=== PATIENT | female | born 1940 | race Caucasian/White ===

== ENCOUNTER 2019-09-22 07:27 | Day surgery (SDC) | payer MEDICARE, BC ==
--- NOTE | 2019-09-22 07:12 | PCM.PREANE ---
Preanesthetic Assessment - Anesthesia/Transfusion/Family Hx Anesthesia History: Prior Anesthesia Without Reaction Family History of Anesthesia Reaction: No Transfusion History: No Prior Transfusion(s) Intubation History: Unknown - Review of Systems General: No Symptoms Pulmonary: No Symptoms Cardiovascular: No Symptoms (HTN, elevated cholesterol), Palpitations, Edema Gastrointestinal: No Symptoms Neurological: No Symptoms (vertigo), Headache (migraines) Other: Reports: Sinus Problem (seasonal allergies) - Physical Assessment NPO Status Date: 09/21/19 NPO Status Time: 18:00 Vital Signs: HR:88 B/P:158/86 Sat:94% Temp:96.3 Resp:16 Height: 1.52 m Weight: 77.111 kg ASA Class: 2 Mental Status: Alert & Oriented x3 Airway Class: Mallampati = 2 Dentition: Reports: Normal Dentition, Partial (lower), Implants (upper each side) Thyro-Mental Finger Breadths: 3 Mouth Opening Finger Breadths: 3 ROM/Head Extension: Full Lungs: Clear to Auscultation, Normal Respiratory Effort Cardiovascular: Regular Rate, Regular Rhythm, No Murmurs - Allergies Allergies/Adverse Reactions: Allergies Allergy/AdvReac Type Severity Reaction Status Date / Time doxycycline AdvReac Cough Verified 09/21/19 16:07 - Anesthesia Plan Beta Radha: Other (Coreg) Med Last Dose Date: 09/22/19 Med Last Dose Time: 06:30 - Acknowledgements Anesthesia Type Planned: MAC Pt an Appropriate Candidate for the Planned Anesthesia: Yes Alternatives and Risks of Anesthesia Discussed w Pt/Guardian: Yes Pt/Guardian Understands and Agrees with Anesthesia Plan: Yes PreAnesthesia Questionnaire Cardiovascular History: Reports: Hypertension Neurological History: Reports: Vertigo - Past Surgical History GI Surgical History: Reports: Appendectomy, Hernia Repair/Other Female Surgical History: Reports: Hysterectomy, Other (See Below) Neurological Surgical History: Reports: Lumbar Spine - HOME MEDS Home Medications: Home Meds Aspirin 81 mg PO DAILY 09/21/19 [History] Carboxymethylcellulose Sodium [Artificial Tears] 1 dose EYEBOTH ASDIRECTED PRN 09/21/19 [History] Cetirizine HCl [Zyrtec] 10 mg PO DAILY 09/21/19 [History] Cholecalciferol (Vitamin D3) [Vitamin D3] 1,000 unit PO DAILY 09/21/19 [History] Gabapentin [Neurontin] 300 mg PO QID 09/21/19 [History] Irbesartan 300 mg PO QID 09/21/19 [History] Meclizine [Antivert] 25 mg PO DAILY 09/21/19 [History] Potassium Chloride 10 mg PO DAILY 09/21/19 [History] Pregabalin [Lyrica] 150 mg PO DAILY 09/21/19 [History] SUMAtriptan [Imitrex] 50 mg PO ASDIRECTED PRN 09/21/19 [History] Zolpidem [Ambien] 10 mg PO BEDTIME PRN 09/21/19 [History] amLODIPine Besylate [Amlodipine Besylate] 10 mg PO DAILY 09/21/19 [History] carvediloL [Carvedilol] 6.25 mg PO BID 09/21/19 [History] hydroCHLOROthiazide [Hydrochlorothiazide] 25 mg PO DAILY 09/21/19 [History] traMADol HCl [Tramadol HCl] 50 mg PO Q6H PRN 09/21/19 [History] - CURRENT (IN HOUSE) MEDS Current Meds: Current Medications Brimonidine Tartrate (Alphagan 0.2% Ophth Soln) 0 ml EYERT ASDIRECTED ANITA Stop: 09/22/19 18:00 Cefuroxime Sodium (Zinacef) 0 mg EYERT ASDIRECTED ANITA Stop: 09/22/19 18:00 Lidocaine HCl (Xylocaine-Mpf 1%) 0 ml INJECT ASDIRECTED ANITA Stop: 09/22/19 18:00 Phenylephrine HCl (Matt-Synephrine 2.5% Ophth Soln) 0 ml EYERT ASDIRECTED ANITA Stop: 09/22/19 18:00 Pilocarpine HCl (Pilocar 4% Ophth Soln) 0 ml EYERT ASDIRECTED ANITA Stop: 09/22/19 18:00 Polymyxin/Trimethoprim Sulfate (Polytrim Ophth Soln) 0 ml EYERT ASDIRECTED ANITA Stop: 09/22/19 18:00 Tetracaine HCl (Tetracaine 0.5% Steri-Unit Lizabeth) 0 ml EYEBOTH ASDIRECTED ANITA Stop: 09/22/19 18:00 Tropicamide (Mydriacyl 1% Ophth Soln) 0 ml EYERT ASDIRECTED ANITA Stop: 09/22/19 18:00
[2019-09-22] MEDS: Polymyxin B/Trimethoprim 10 ML Bottle EYERT SCH ×4 (07:57→09:44)
[2019-09-22] MEDS: Brimonidine 0.2% Ophth Soln 5 ML Bottle EYERT SCH ×4 (08:03→09:44)
[2019-09-22] MEDS: Phenylephrine 2.5% Ophth Soln 2 ML Bot EYERT SCH ×5 (08:07→09:20)
[2019-09-22] MEDS: Tropicamide 1% Ophth Soln 15 ML Bottle EYERT SCH ×4 (08:13→08:53)
[2019-09-22] MEDS: Tetracaine HCl/PF 0.5% 4 ML Bottle EYEBOTH SCH ×2 (09:20→09:28)
[2019-09-22] MEDS: Lidocaine 1% PF 2 ML SDV INJECT SCH ×2 (09:26→09:28)
[2019-09-22] MEDS: Cefuroxime 10 MG/ML SYRINGE EYERT SCH ×2 (09:28→09:43)
[2019-09-22] MEDS: Pilocarpine 4% Ophth Soln 15 ML Bot EYERT SCH ×2 (09:29→09:44)
--- NOTE | 2019-09-22 09:46 | PCM48HPAN ---
Post Anesthesia Note - EVALUATION WITHIN 48HRS OF ANESTHETIC Vital Signs in Normal Range: Yes Patient Participated in Evaluation: Yes Respiratory Function Stable: Yes Airway Patent: Yes Cardiovascular Function Stable: Yes Hydration Status Stable: Yes Pain Control Satisfactory: Yes Nausea and Vomiting Control Satisfactory: Yes Mental Status Recovered: Yes Vital Signs: Last Vital Signs Temp 35.7 C L 09/22/19 07:25 Pulse 88 09/22/19 07:25 Resp 16 09/22/19 07:25 BP 158/86 H 09/22/19 07:25 Pulse Ox 94 L 09/22/19 07:25
[2019-09-22 10:11] VITALS: BP 151/74; PULSE 82
== END 2019-09-22 09:57 | disposition home or self-care (01) ==
LOC: JD.SDS 07:27
PROVIDERS: ATTEND Ophthalmology
DX: H25.813 Combined forms of age-related cataract, bilateral (principal); H16.103 Unspecified superficial keratitis, bilateral; H16.223 Keratoconjunctivitis sicca, not specified as Sjogren's, bilateral; H02.831 Dermatochalasis of right upper eyelid; H02.834 Dermatochalasis of left upper eyelid; H57.813 Brow ptosis, bilateral; E78.00 Pure hypercholesterolemia, unspecified; G47.00 Insomnia, unspecified; G43.909 Migraine, unspecified, not intractable, without status migrainosus; I10 Essential (primary) hypertension; Z79.82 Long term (current) use of aspirin; Z79.899 Other long term (current) drug therapy; Z88.1 Allergy status to other antibiotic agents
CPT/HCPCS: 66984; J0697; J2001; C1780

== ENCOUNTER 2019-10-18 10:25 | Day surgery (SDC) | payer MEDICARE, BC ==
[2019-10-18] MEDS: Polymyxin B/Trimethoprim 10 ML Bottle EYELF SCH ×4 (10:32→12:28)
[2019-10-18] MEDS: Brimonidine 0.2% Ophth Soln 5 ML Bottle EYELF SCH ×4 (10:38→12:28)
[2019-10-18] MEDS: Phenylephrine 2.5% Ophth Soln 2 ML Bot EYELF SCH ×6 (10:46→12:07)
[2019-10-18] MEDS: Tropicamide 1% Ophth Soln 15 ML Bottle EYELF SCH ×4 (10:49→11:18)
--- NOTE | 2019-10-18 10:56 | PCM.PREANE ---
<Daphne Hernandez - Last Filed: 10/18/19 10:51> Preanesthetic Assessment - Anesthesia/Transfusion/Family Hx Anesthesia History: Prior Anesthesia Without Reaction Transfusion History: No Prior Transfusion(s) Intubation History: Unknown - Review of Systems General: No Symptoms Pulmonary: No Symptoms Cardiovascular: No Symptoms, Palpitations, Edema, Other (HTN, elevated cholesterol) Gastrointestinal: No Symptoms Neurological: No Symptoms Other: Reports: None - Physical Assessment NPO Status Date: 10/17/19 NPO Status Time: 21:00 Height: 1.52 m Weight: 77.111 kg ASA Class: 2 Mental Status: Alert & Oriented x3 Airway Class: Mallampati = 2 Dentition: Reports: Normal Dentition, Partial (lower), Implants (upper ) Thyro-Mental Finger Breadths: 3 Mouth Opening Finger Breadths: 3 ROM/Head Extension: Full Lungs: Clear to Auscultation, Normal Respiratory Effort Cardiovascular: Regular Rate, Regular Rhythm - Allergies Allergies/Adverse Reactions: Allergies Allergy/AdvReac Type Severity Reaction Status Date / Time doxycycline AdvReac Cough Verified 10/17/19 13:52 - Acknowledgements Anesthesia Type Planned: MAC Pt an Appropriate Candidate for the Planned Anesthesia: Yes Alternatives and Risks of Anesthesia Discussed w Pt/Guardian: Yes Pt/Guardian Understands and Agrees with Anesthesia Plan: Yes PreAnesthesia Questionnaire Cardiovascular History: Reports: Hypertension Neurological History: Reports: Vertigo - Past Surgical History GI Surgical History: Reports: Appendectomy, Hernia Repair/Other Female Surgical History: Reports: Hysterectomy, Other (See Below) Neurological Surgical History: Reports: Lumbar Spine - HOME MEDS Home Medications: Home Meds Aspirin 81 mg PO DAILY 09/21/19 [History] Carboxymethylcellulose Sodium [Artificial Tears] 1 dose EYEBOTH ASDIRECTED PRN 09/21/19 [History] Cetirizine HCl [Zyrtec] 10 mg PO DAILY 09/21/19 [History] Cholecalciferol (Vitamin D3) [Vitamin D3] 1,000 unit PO DAILY 09/21/19 [History] Gabapentin [Neurontin] 300 mg PO QID 09/21/19 [History] Irbesartan 300 mg PO QID 09/21/19 [History] Meclizine [Antivert] 25 mg PO DAILY 09/21/19 [History] Potassium Chloride 10 mg PO DAILY 09/21/19 [History] Pregabalin [Lyrica] 150 mg PO DAILY 09/21/19 [History] SUMAtriptan [Imitrex] 50 mg PO ASDIRECTED PRN 09/21/19 [History] Zolpidem [Ambien] 10 mg PO BEDTIME PRN 09/21/19 [History] amLODIPine Besylate [Amlodipine Besylate] 10 mg PO DAILY 09/21/19 [History] carvediloL [Carvedilol] 6.25 mg PO BID 09/21/19 [History] hydroCHLOROthiazide [Hydrochlorothiazide] 25 mg PO DAILY 09/21/19 [History] traMADol HCl [Tramadol HCl] 50 mg PO Q6H PRN 09/21/19 [History] <Jam Lawson - Last Filed: 10/18/19 11:09> Preanesthetic Assessment - Physical Assessment Vital Signs: Last Vital Signs Temp 97.8 F 10/18/19 10:25 Pulse 73 10/18/19 10:25 Resp 16 10/18/19 10:25 BP 160/76 H 10/18/19 10:25 Pulse Ox 93 L 10/18/19 10:25 PreAnesthesia Questionnaire - CURRENT (IN HOUSE) MEDS Current Meds: Current Medications Brimonidine Tartrate (Alphagan 0.2% Ophth Soln) 0 ml EYELF ASDIRECTED ANITA Stop: 10/18/19 23:00 Last Admin: 10/18/19 10:38 Dose: 1 drop Documented by: Cefuroxime Sodium (Zinacef) 0 mg EYELF ASDIRECTED ANITA Stop: 10/18/19 18:00 Lidocaine HCl (Xylocaine-Mpf 1%) 0 ml INJECT ASDIRECTED ANITA Stop: 10/18/19 18:00 Phenylephrine HCl (Matt-Synephrine 2.5% Ophth Soln) 0 ml EYELF ASDIRECTED ANITA Stop: 10/18/19 23:00 Last Admin: 10/18/19 10:59 Dose: 1 drop Documented by: Pilocarpine HCl (Pilocar 4% Ophth Soln) 0 ml EYELF ASDIRECTED ANITA Stop: 10/18/19 18:00 Polymyxin/Trimethoprim Sulfate (Polytrim Ophth Soln) 0 ml EYELF ASDIRECTED ANITA Stop: 10/18/19 18:00 Last Admin: 08/18/20 11:07 Dose: 1 drop Documented by: Tetracaine HCl (Tetracaine 0.5% Steri-Unit Lizabeth) 0 ml EYEBOTH ASDIRECTED ANITA Stop: 10/18/19 18:00 Tropicamide (Mydriacyl 1% Ophth Soln) 0 ml EYELF ASDIRECTED ANITA Stop: 10/18/19 18:00 Last Admin: 10/18/19 11:03 Dose: 1 drop Documented by:
[2019-10-18] MEDS: Tetracaine HCl/PF 0.5% 4 ML Bottle EYEBOTH SCH ×8 (11:26→12:15)
[2019-10-18] MEDS: Cefuroxime 10 MG/ML SYRINGE EYELF SCH ×2 (11:59→12:27)
[2019-10-18] MEDS: Lidocaine 1% PF 2 ML SDV INJECT SCH ×2 (11:59→12:16)
[2019-10-18] MEDS: Pilocarpine 4% Ophth Soln 15 ML Bot EYELF SCH ×2 (12:00→12:28)
--- NOTE | 2019-10-18 12:32 | PCM48HPAN ---
Post Anesthesia Note - EVALUATION WITHIN 48HRS OF ANESTHETIC Vital Signs in Normal Range: Yes Patient Participated in Evaluation: Yes Respiratory Function Stable: Yes Airway Patent: Yes Cardiovascular Function Stable: Yes Hydration Status Stable: Yes Pain Control Satisfactory: Yes Nausea and Vomiting Control Satisfactory: Yes Mental Status Recovered: Yes Vital Signs: Last Vital Signs Temp 97.8 F 10/18/19 10:25 Pulse 73 10/18/19 10:25 Resp 16 10/18/19 10:25 BP 160/76 H 10/18/19 10:25 Pulse Ox 93 L 10/18/19 10:25 142/71, HR 78, RR 12, SpO2 93% RA
[2019-10-18 12:48] VITALS: BP 154/85; PULSE 81
== END 2019-10-18 12:43 | disposition home or self-care (01) ==
LOC: JD.SDS 10:25
PROVIDERS: ATTEND Ophthalmology
DX: H25.812 Combined forms of age-related cataract, left eye (principal); H02.831 Dermatochalasis of right upper eyelid; H02.834 Dermatochalasis of left upper eyelid; H57.813 Brow ptosis, bilateral; H16.103 Unspecified superficial keratitis, bilateral; H16.223 Keratoconjunctivitis sicca, not specified as Sjogren's, bilateral; E78.00 Pure hypercholesterolemia, unspecified; I10 Essential (primary) hypertension; G47.00 Insomnia, unspecified; Z79.82 Long term (current) use of aspirin; Z79.899 Other long term (current) drug therapy; Z96.1 Presence of intraocular lens
CPT/HCPCS: 66984; J0697; J2001; C1780

== ENCOUNTER 2022-12-21 03:15 | Inpatient (IN) | payer MEDICARE, BC ==
[2022-12-21] MEDS ORDERED: Sodium Chloride 0.9% 10 ML Syringe FLUSH PRN (03:42)
[2022-12-21] MEDS ORDERED: Lactated Ringers 1,000 ML IV ONE (03:46)
[2022-12-21 03:58] LABS: APPEARANCE,URINE CLEAR (Clear); BILIRUBIN,URINE NEGATIVE (Negative); COLOR,URINE LIGHT YELLOW (Yellow); GLUCOSE,URINE NEGATIVE (Negative); KETONES,URINE TRACE (Negative); LEUKOCYTE ESTERASE,URINE TRACE (Negative); NITRITE,URINE NEGATIVE (Negative); OCCULT BLOOD,URINE TRACE-LYSED (Negative); PROTEIN,URINE 2+ (Negative); UROBILINOGEN,URINE 0.2 (0.2-1.0)
[2022-12-21] MEDS ORDERED: Ondansetron 4 MG/2 ML SDV IVPUSH ONE ×3 (03:58→15:19)
[2022-12-21 04:00] LABS: BASOPHILS ABSOLUTE AUTO 0.1 K/mm3 (0.0-0.2); BASOPHILS PERCENT AUTO 0.8 % (0.0-1.0); EOSINOPHILS ABSOLUTE AUTO 0.2 K/mm3 (0.0-0.4); EOSINOPHILS PERCENT AUTO 2.5 % (0.0-6.0); HEMATOCRIT 43.8 % (37.0-47.0); HEMOGLOBIN 14.9 gm/dl (12.0-16.0); IMMATURE GRAN ABSOLUTE AUTO 0.03 K/mm3 (0.00-0.05); IMMATURE GRAN PERCENT AUTO 0.4 % (0.0-0.4); LYMPHOCYTES ABSOLUTE AUTO 1.2 K/mm3 (1.0-4.8); LYMPHOCYTES PERCENT AUTO 15.5 % (24.0-44.0); MEAN CORPUSCULAR HEMOGLOBIN 28.7 pg (28.0-32.0); MEAN CORPUSCULAR VOLUME 84.4 fl (83.0-99.0); MEAN PLATELET VOLUME 11.2 fl (9.4-12.3); MONOCYTES ABSOLUTE AUTO 0.5 K/mm3 (0.0-0.8); NEUTROPHILS PERCENT AUTO 74.8 % (41.0-71.0); PLATELET COUNT,PLT 238 K/mm3 (150-400); RED BLOOD CELL COUNT 5.19 M/mm3 (4.10-5.30)
[2022-12-21 04:05] LABS: BACTERIA,URINE MANY /hpf (FEW); RBC,URINE 0-5 /hpf (0-5); SQUAMOUS EPITHELIAL CELLS,UR 0-5 /hpf (0-5); WBC,URINE 20-30 /hpf (0-5)
[2022-12-21 04:06] LABS: MUCUS,URINE NOT SEEN /hpf (FEW)
[2022-12-21 04:19] LABS: A/G RATIO 1.4 (1-2); ALBUMIN 4.8 g/dl (3.4-5.0); ANION GAP 17.6 (5-15); BILIRUBIN TOTAL 0.5 mg/dL (0.2-1.0); CALCIUM 9.6 mg/dL (8.5-10.1); CREATININE 0.8 mg/dL (0.55-1.02); EST CRCL DRUG DOSING (CG) 45.2 mL/min; MAGNESIUM 1.7 mg/dL (1.8-2.4); POTASSIUM,K 2.6 mEq/L (3.5-5.1); PROTEIN TOTAL,TP 8.2 g/dl (6.4-8.2)
[2022-12-21] MEDS ORDERED: NS with KCl 40mEq 1,000 ML IV SCH (04:30)
[2022-12-21] MEDS ORDERED: Prochlorperazine 10 MG/2 ML SDV IVPUSH ONE (04:30)
[2022-12-21] MEDS ORDERED: cefTRIAXone 1 GM in Sodium Chloride 0.9% 100 ML IV ONE (04:33)
[2022-12-21] MEDS ORDERED: Prochlorperazine 5 MG in Sodium Chloride 0.9% 50 ML IV ONE (08:19)
[2022-12-21] MEDS ORDERED: Potassium Chloride 20 MEQ Tab.ER PO ONE (09:22)
[2022-12-21] MEDS ORDERED: traMADol 50 MG Tab PO ONE (13:34)
[2022-12-21] MEDS ORDERED: cefTRIAXone 1 GM in Sodium Chloride 0.9% 100 ML IV SCH (15:30)
[2022-12-21] MEDS: oxyCODONE 5 MG Tab PO PRN ×2 (16:51→23:13)
[2022-12-21] MEDS: Acetaminophen 325 MG Tab PO PRN (16:51)
[2022-12-21] MEDS: Heparin Sodium 5,000 Units/ML Vial SUBCUT SCH (17:31)
[2022-12-21] MEDS: Ondansetron 4 MG Tab.DIS PO PRN ×2 (17:32→21:20)
[2022-12-21] MEDS ORDERED: amLODIPine 10 MG Tab PO ONE (20:00)
[2022-12-22] MEDS: Heparin Sodium 5,000 Units/ML Vial SUBCUT SCH ×3 (00:04→16:24)
[2022-12-22] MEDS: Acetaminophen 325 MG Tab PO PRN (03:46)
[2022-12-22] MEDS: oxyCODONE 5 MG Tab PO PRN (03:47)
[2022-12-22] MEDS ORDERED: cefTRIAXone 1 GM in Sodium Chloride 0.9% 100 ML IV SCH (04:00)
[2022-12-22 05:30] LABS: BASOPHILS PERCENT AUTO 0.1 % (0.0-1.0); HEMATOCRIT 44.3 % (37.0-47.0); IMMATURE GRAN ABSOLUTE AUTO 0.11 K/mm3 (0.00-0.05); IMMATURE GRAN PERCENT AUTO 0.7 % (0.0-0.4); LYMPHOCYTES ABSOLUTE AUTO 1.1 K/mm3 (1.0-4.8); LYMPHOCYTES PERCENT AUTO 6.7 % (24.0-44.0); MEAN CORPUSCULAR HEMOGLOBIN 28.7 pg (28.0-32.0); MEAN CORPUSCULAR HGB CONC 33.9 g/dl (32.0-36.0); MEAN CORPUSCULAR VOLUME 84.9 fl (83.0-99.0); MEAN PLATELET VOLUME 11.8 fl (9.4-12.3); MONOCYTES ABSOLUTE AUTO 0.7 K/mm3 (0.0-0.8); NEUTROPHILS ABSOLUTE AUTO 14.9 K/mm3 (1.8-7.7); NEUTROPHILS PERCENT AUTO 88.5 % (41.0-71.0); PLATELET COUNT,PLT 302 K/mm3 (150-400); RED BLOOD CELL COUNT 5.22 M/mm3 (4.10-5.30); WHITE BLOOD CELL COUNT,WBC 16.83 K/mm3 (3.9-11.3)
[2022-12-22 06:09] LABS: A/G RATIO 1.3 (1-2); ALBUMIN 4.7 g/dl (3.4-5.0); ANION GAP 19.1 (5-15); BILIRUBIN TOTAL 0.6 mg/dL (0.2-1.0); BUN/CREATININE RATIO 16.7 (14-18); CALCIUM 9.7 mg/dL (8.5-10.1); CREATININE 0.9 mg/dL (0.55-1.02); EST CRCL DRUG DOSING (CG) 38.49 mL/min; MAGNESIUM 1.7 mg/dL (1.8-2.4); POTASSIUM,K 3.1 mEq/L (3.5-5.1); PROTEIN TOTAL,TP 8.3 g/dl (6.4-8.2)
[2022-12-22] MEDS ORDERED: Metoclopramide 10 MG/2 ML SDV IVPUSH ONE (07:58)
[2022-12-22] MEDS: Ondansetron 4 MG Tab.DIS PO PRN (07:58)
[2022-12-22] MEDS: amLODIPine 10 MG Tab PO SCH (08:09)
[2022-12-22] MEDS ORDERED: Carboxymethylcellulose Sodium 1% Ophth Gel 15 ML Bottle EYEBOTH PRN (08:44)
[2022-12-22] MEDS: Gabapentin 300 MG Cap PO SCH ×3 (09:09→22:00)
[2022-12-22] MEDS: Pregabalin 75 MG Cap PO SCH ×2 (09:10→21:59)
[2022-12-22] MEDS: Cetirizine 10 MG Tab PO SCH (09:10)
[2022-12-22] MEDS: Potassium Chloride 20 MEQ Tab.ER PO SCH ×2 (09:10→21:59)
[2022-12-22] MEDS: Meclizine 25 MG Tab PO SCH ×2 (09:10→22:00)
[2022-12-22] MEDS: Carvedilol 6.25 MG Tab PO SCH ×2 (09:12→21:59)
[2022-12-22] MEDS: Losartan 100 MG Tab PO SCH (09:13)
[2022-12-22] MEDS ORDERED: Magnesium Sulfate/Water 2 GM in Premix Bag 1 BAG IV ONE (10:00)
[2022-12-22 10:47] LABS: CORONAVIRUS COVID-19 NAA NEGATIVE (NEGATIVE); INFLUENZA A NAA NEGATIVE (NEGATIVE); RESPIRATORY SYNCYTIAL VIR NAA NEGATIVE (NEGATIVE)
[2022-12-22] MEDS ORDERED: Iopamidol 755 Mg/ML 100 ML Bottle IVPUSH ONE (13:25)
[2022-12-22] MEDS ORDERED: Sodium Chloride 0.9% 10 ML Syringe FLUSH PRN (13:25)
[2022-12-22] MEDS ORDERED: Sodium Chloride 0.9% 100 ML IV SCH (13:30)
[2022-12-22] MEDS: traMADol 50 MG Tab PO PRN (15:11)
[2022-12-22] MEDS: Sodium Chloride 1 GM Tab PO SCH ×2 (15:13→22:00)
[2022-12-22] MEDS: Zolpidem 5 MG Tab PO PRN (21:59)
[2022-12-23] MEDS: Heparin Sodium 5,000 Units/ML Vial SUBCUT SCH ×3 (01:00→16:38)
[2022-12-23] MEDS: cefTRIAXone 2 GM in Sodium Chloride 0.9% 100 ML IV SCH (04:58)
[2022-12-23 05:33] LABS: BASOPHILS PERCENT AUTO 0.2 % (0.0-1.0); HEMATOCRIT 38.7 % (37.0-47.0); HEMOGLOBIN 13.1 gm/dl (12.0-16.0); IMMATURE GRAN ABSOLUTE AUTO 0.04 K/mm3 (0.00-0.05); IMMATURE GRAN PERCENT AUTO 0.4 % (0.0-0.4); LYMPHOCYTES ABSOLUTE AUTO 1.2 K/mm3 (1.0-4.8); LYMPHOCYTES PERCENT AUTO 13.1 % (24.0-44.0); MEAN CORPUSCULAR HEMOGLOBIN 28.5 pg (28.0-32.0); MEAN CORPUSCULAR HGB CONC 33.9 g/dl (32.0-36.0); MEAN CORPUSCULAR VOLUME 84.1 fl (83.0-99.0); MEAN PLATELET VOLUME 11.5 fl (9.4-12.3); MONOCYTES ABSOLUTE AUTO 0.4 K/mm3 (0.0-0.8); MONOCYTES PERCENT AUTO 4.5 % (0.0-8.0); NEUTROPHILS ABSOLUTE AUTO 7.6 K/mm3 (1.8-7.7); NEUTROPHILS PERCENT AUTO 81.8 % (41.0-71.0); PLATELET COUNT,PLT 249 K/mm3 (150-400); WHITE BLOOD CELL COUNT,WBC 9.24 K/mm3 (3.9-11.3)
[2022-12-23 06:02] LABS: ANION GAP 13.2 (5-15); BLOOD UREA NITROGEN,BUN 24 mg/dL (7-18); C-REACTIVE PROTEIN <0.2 mg/dL (<1.0); CALCIUM 9.1 mg/dL (8.5-10.1); CARBON DIOXIDE,CO2 24 mEq/L (21-32); CHLORIDE,CL 98 mEq/L (98-107); EST CRCL DRUG DOSING (CG) 34.64 mL/min; ESTIMATED GFR 56 mL/min (>60); GLUCOSE RANDOM 116 mg/dL (70-99); MAGNESIUM 2.9 mg/dL (1.8-2.4); POTASSIUM,K 4.2 mEq/L (3.5-5.1); SODIUM,NA 131 mEq/L (136-145)
[2022-12-23] MEDS: Pregabalin 75 MG Cap PO SCH ×2 (08:13→22:09)
[2022-12-23] MEDS: Cetirizine 10 MG Tab PO SCH (08:13)
[2022-12-23] MEDS: amLODIPine 10 MG Tab PO SCH (08:13)
[2022-12-23] MEDS: Meclizine 25 MG Tab PO SCH ×2 (08:13→22:08)
[2022-12-23] MEDS: Potassium Chloride 20 MEQ Tab.ER PO SCH ×2 (08:13→22:09)
[2022-12-23] MEDS: Losartan 100 MG Tab PO SCH (08:14)
[2022-12-23] MEDS: Gabapentin 300 MG Cap PO SCH ×3 (08:14→22:09)
[2022-12-23] MEDS: Carvedilol 6.25 MG Tab PO SCH ×2 (08:14→22:10)
[2022-12-23] MEDS: traMADol 50 MG Tab PO PRN (19:27)
[2022-12-23] MEDS: Zolpidem 5 MG Tab PO PRN (22:09)
[2022-12-24] MEDS: Heparin Sodium 5,000 Units/ML Vial SUBCUT SCH ×2 (02:06→08:39)
[2022-12-24] MEDS: cefTRIAXone 2 GM in Sodium Chloride 0.9% 100 ML IV SCH (03:00)
[2022-12-24 05:43] LABS: BASOPHILS ABSOLUTE AUTO 0.1 K/mm3 (0.0-0.2); BASOPHILS PERCENT AUTO 1.8 % (0.0-1.0); EOSINOPHILS ABSOLUTE AUTO 0.1 K/mm3 (0.0-0.4); EOSINOPHILS PERCENT AUTO 1.6 % (0.0-6.0); HEMATOCRIT 41.8 % (37.0-47.0); IMMATURE GRAN ABSOLUTE AUTO 0.02 K/mm3 (0.00-0.05); IMMATURE GRAN PERCENT AUTO 0.4 % (0.0-0.4); LYMPHOCYTES ABSOLUTE AUTO 1.5 K/mm3 (1.0-4.8); LYMPHOCYTES PERCENT AUTO 26.1 % (24.0-44.0); MEAN CORPUSCULAR HEMOGLOBIN 28.9 pg (28.0-32.0); MEAN CORPUSCULAR HGB CONC 33.5 g/dl (32.0-36.0); MEAN CORPUSCULAR VOLUME 86.4 fl (83.0-99.0); MEAN PLATELET VOLUME 11.6 fl (9.4-12.3); MONOCYTES ABSOLUTE AUTO 0.6 K/mm3 (0.0-0.8); MONOCYTES PERCENT AUTO 11.4 % (0.0-8.0); NEUTROPHILS ABSOLUTE AUTO 3.3 K/mm3 (1.8-7.7); NEUTROPHILS PERCENT AUTO 58.7 % (41.0-71.0); PLATELET COUNT,PLT 188 K/mm3 (150-400); RED BLOOD CELL COUNT 4.84 M/mm3 (4.10-5.30); WHITE BLOOD CELL COUNT,WBC 5.59 K/mm3 (3.9-11.3)
[2022-12-24 05:49] LABS: ANION GAP 14.4 (5-15); BLOOD UREA NITROGEN,BUN 30 mg/dL (7-18); C-REACTIVE PROTEIN <0.2 mg/dL (<1.0); CALCIUM 8.9 mg/dL (8.5-10.1); CARBON DIOXIDE,CO2 23 mEq/L (21-32); CHLORIDE,CL 101 mEq/L (98-107); EST CRCL DRUG DOSING (CG) 34.64 mL/min; ESTIMATED GFR 56 mL/min (>60); GLUCOSE RANDOM 116 mg/dL (70-99); POTASSIUM,K 4.4 mEq/L (3.5-5.1); SODIUM,NA 134 mEq/L (136-145)
[2022-12-24 08:38] VITALS: BP 132/65
[2022-12-24] MEDS: Losartan 100 MG Tab PO SCH (08:38)
[2022-12-24] MEDS: Potassium Chloride 20 MEQ Tab.ER PO SCH (08:38)
[2022-12-24] MEDS: Gabapentin 300 MG Cap PO SCH (08:39)
[2022-12-24] MEDS: Carvedilol 6.25 MG Tab PO SCH (08:39)
[2022-12-24] MEDS: Cetirizine 10 MG Tab PO SCH (08:39)
[2022-12-24] MEDS: amLODIPine 10 MG Tab PO SCH (08:39)
[2022-12-24] MEDS: Meclizine 25 MG Tab PO SCH (08:41)
[2022-12-24] MEDS: Pregabalin 75 MG Cap PO SCH (08:41)
[2022-12-24 08:42] VITALS: PULSE 64
== END 2022-12-24 10:22 | disposition home or self-care (01) | DRG 690 ==
LOC: JD.ED 03:15 → JD.ICU 12:48 → OBSVTOIN 12:48 → INTOOBSV 12:48 → UNDOADMOB 12:48 → OBSVTOIN 15:28 → JD.ICU 15:28 → UNDODISIN 12-24 10:22
PROVIDERS: ADMIT Internal Medicine; ATTEND Internal Medicine
DX: N30.00 Acute cystitis without hematuria (principal); Z66 Do not resuscitate; E87.6 Hypokalemia; Z20.822 Contact with and (suspected) exposure to COVID-19; B96.20 Unspecified Escherichia coli [E. coli] as the cause of diseases classified elsewhere; I10 Essential (primary) hypertension; R09.02 Hypoxemia; E83.42 Hypomagnesemia; Z88.8 Allergy status to other drugs, medicaments and biological substances; Z79.82 Long term (current) use of aspirin; Z79.899 Other long term (current) drug therapy; Z98.890 Other specified postprocedural states; Z90.49 Acquired absence of other specified parts of digestive tract; Z90.710 Acquired absence of both cervix and uterus
CPT/HCPCS: 0241U; 36415; 71046; 71046-26; 71275; 71275-26; 80048; 80053; 81001; 83735; 84145; 85025; 86140; 87086; 87088; 87186; 96361; 96365; 96366; 96367; 96368; 96375; 96376; 97110-GP; 97116-GP; 97162-GP; 99223; 99232; 99233; 99239; 99284; 99285-25; A9270-GY; J0696; J0780; J1644; J2405; J2765; J3475; J3480; J3490; J7120; Q9967

== ENCOUNTER 2023-09-22 18:29 | Emergency (ER) | payer MEDICARE, BC ==
[2023-09-22 19:54] LABS: APPEARANCE,URINE CLEAR (Clear); BILIRUBIN,URINE NEGATIVE (Negative); COLOR,URINE LIGHT YELLOW (Yellow); GLUCOSE,URINE NEGATIVE (Negative); KETONES,URINE NEGATIVE (Negative); LEUKOCYTE ESTERASE,URINE TRACE (Negative); NITRITE,URINE NEGATIVE (Negative); OCCULT BLOOD,URINE NEGATIVE (Negative); PROTEIN,URINE NEGATIVE (Negative); UROBILINOGEN,URINE 0.2 (0.2-1.0)
[2023-09-22 20:04] LABS: BACTERIA,URINE RARE /hpf (FEW); MUCUS,URINE NOT SEEN /hpf (FEW); RBC,URINE 0-5 /hpf (0-5); SQUAMOUS EPITHELIAL CELLS,UR 0-5 /hpf (0-5); WBC,URINE 0-5 /hpf (0-5)
[2023-09-22 20:18] LABS: BASOPHILS ABSOLUTE AUTO 0.1 K/mm3 (0.0-0.2); BASOPHILS PERCENT AUTO 0.8 % (0.0-1.0); EOSINOPHILS ABSOLUTE AUTO 0.2 K/mm3 (0.0-0.4); EOSINOPHILS PERCENT AUTO 2.8 % (0.0-6.0); HEMATOCRIT 40.1 % (37.0-47.0); IMMATURE GRAN ABSOLUTE AUTO 0.03 K/mm3 (0.00-0.05); IMMATURE GRAN PERCENT AUTO 0.5 % (0.0-0.4); LYMPHOCYTES ABSOLUTE AUTO 1.7 K/mm3 (1.0-4.8); LYMPHOCYTES PERCENT AUTO 27.4 % (24.0-44.0); MEAN CORPUSCULAR HEMOGLOBIN 28.3 pg (28.0-32.0); MEAN CORPUSCULAR HGB CONC 32.4 g/dl (32.0-36.0); MEAN CORPUSCULAR VOLUME 87.2 fl (83.0-99.0); MEAN PLATELET VOLUME 11.4 fl (9.4-12.3); MONOCYTES ABSOLUTE AUTO 0.5 K/mm3 (0.0-0.8); MONOCYTES PERCENT AUTO 7.6 % (0.0-8.0); NEUTROPHILS ABSOLUTE AUTO 3.9 K/mm3 (1.8-7.7); NEUTROPHILS PERCENT AUTO 60.9 % (41.0-71.0); PLATELET COUNT,PLT 248 K/mm3 (150-400); WHITE BLOOD CELL COUNT,WBC 6.34 K/mm3 (3.9-11.3)
[2023-09-22] MEDS: Acetaminophen 325 MG Tab PO ONE (20:36)
[2023-09-22] MEDS: Labetalol 100 MG/20 ML MDV IVPUSH ONE (20:36)
[2023-09-22] MEDS: Sodium Chloride 0.9% 10 ML Syringe FLUSH PRN (20:42)
[2023-09-22 20:46] LABS: A/G RATIO 1.3 (1-2); ANION GAP 13.6 (5-15); BILIRUBIN TOTAL 0.5 mg/dL (0.2-1.0); BUN/CREATININE RATIO 17.8 (14-18); CALCIUM 9.2 mg/dL (8.5-10.1); CREATININE 0.9 mg/dL (0.55-1.02); EST CRCL DRUG DOSING (CG) 32.83 mL/min; POTASSIUM,K 3.6 mEq/L (3.5-5.1)
[2023-09-22] MEDS: hydrALAZINE 20 MG/ML SDV IVPUSH ONE (23:08)
[2023-09-22 23:22] VITALS: BP 162/77; PULSE 77
== END 2023-09-22 23:43 | disposition home or self-care (01) ==
LOC: JD.ED 18:29
DX: I10 Essential (primary) hypertension (principal); R51.9 Headache, unspecified; Z90.710 Acquired absence of both cervix and uterus; Z79.899 Other long term (current) drug therapy; Z88.1 Allergy status to other antibiotic agents
CPT/HCPCS: 36415; 70450; 72125; 80053; 81001; 83735; 85025; 87086; 93005; 96374; 96375; 99284; A9270; J0360; J1921; J3490

== ENCOUNTER 2024-03-07 12:58 | Inpatient (IN) | payer MEDICARE, BC ==
[2024-03-07] MEDS ORDERED: Sodium Chloride 0.9% 10 ML Syringe FLUSH PRN (14:05)
[2024-03-07] MEDS: Ondansetron 4 MG/2 ML SDV IVPUSH ONE ×2 (14:25→17:14)
[2024-03-07 14:27] LABS: BASOPHILS PERCENT AUTO 0.3 % (0.0-1.0); EOSINOPHILS ABSOLUTE AUTO 0.1 K/mm3 (0.0-0.4); EOSINOPHILS PERCENT AUTO 2.4 % (0.0-6.0); HEMATOCRIT 38.7 % (37.0-47.0); HEMOGLOBIN 13.3 gm/dl (12.0-16.0); IMMATURE GRAN ABSOLUTE AUTO 0.01 K/mm3 (0.00-0.05); IMMATURE GRAN PERCENT AUTO 0.2 % (0.0-0.4); LYMPHOCYTES ABSOLUTE AUTO 0.8 K/mm3 (1.0-4.8); MEAN CORPUSCULAR HEMOGLOBIN 28.5 pg (28.0-32.0); MEAN CORPUSCULAR HGB CONC 34.4 g/dl (32.0-36.0); MEAN CORPUSCULAR VOLUME 82.9 fl (83.0-99.0); MONOCYTES ABSOLUTE AUTO 0.2 K/mm3 (0.0-0.8); MONOCYTES PERCENT AUTO 3.3 % (0.0-8.0); NEUTROPHILS ABSOLUTE AUTO 4.6 K/mm3 (1.8-7.7); NEUTROPHILS PERCENT AUTO 79.8 % (41.0-71.0); PLATELET COUNT,PLT 208 K/mm3 (150-400); RED BLOOD CELL COUNT 4.67 M/mm3 (4.10-5.30); WHITE BLOOD CELL COUNT,WBC 5.73 K/mm3 (3.9-11.3)
[2024-03-07] MEDS: HYDROmorphone 0.5 MG/0.5 ML Syringe IVPUSH ONE (14:27)
[2024-03-07 14:28] LABS: LACTIC ACID 1.4 mmol/L (0.4-2.0)
[2024-03-07 14:29] LABS: A/G RATIO 1.9 (1-2); ALANINE AMINOTRANSFERASE,ALT 26 U/L (14-59); ALBUMIN 5.1 g/dl (3.4-5.0); ALKALINE PHOSPHATASE 95 U/L (46-116); ANION GAP 16.8 (5-15); ASPARTATE AMNIOTRANSFERASE,AST 28 U/L (15-37); BILIRUBIN TOTAL 0.8 mg/dL (0.2-1.0); BLOOD UREA NITROGEN,BUN 18 mg/dL (7-18); BUN/CREATININE RATIO 22.5 (14-18); CALCIUM 9.4 mg/dL (8.5-10.1); CARBON DIOXIDE,CO2 24 mEq/L (21-32); CHLORIDE,CL 88 mEq/L (98-107); CREATININE 0.8 mg/dL (0.55-1.02); ESTIMATED GFR 72 mL/min (>60); GLUCOSE RANDOM 129 mg/dL (70-99); LIPASE 37 U/L (16-77); MAGNESIUM 1.4 mg/dL (1.8-2.4); POTASSIUM,K 3.8 mEq/L (3.5-5.1); PROTEIN TOTAL,TP 7.8 g/dl (6.4-8.2); SODIUM,NA 125 mEq/L (136-145); TROPONIN I HIGH SENSITIVITY 14 pg/mL (<=51)
[2024-03-07] MEDS: Sodium Chloride 0.9% 1,000 ML IV STA (14:29)
[2024-03-07 14:31] LABS: INR 1.07; PROTHROMBIN TIME 11.3 SECONDS (9.7-12.0)
[2024-03-07 14:32] LABS: PTT,PARTIAL THROMBOPLSTIN TIME 27.2 SECONDS (21.7-31.4)
[2024-03-07] MEDS: Metoclopramide 10 MG/2 ML SDV IVPUSH ONE (15:05)
[2024-03-07 16:31] LABS: APPEARANCE,URINE CLEAR (Clear); BILIRUBIN,URINE NEGATIVE (Negative); COLOR,URINE YELLOW (Yellow); GLUCOSE,URINE NEGATIVE (Negative); KETONES,URINE 1+ (Negative); LEUKOCYTE ESTERASE,URINE NEGATIVE (Negative); NITRITE,URINE NEGATIVE (Negative); OCCULT BLOOD,URINE TRACE-LYSED (Negative); PROTEIN,URINE 2+ (Negative); UROBILINOGEN,URINE 0.2 (0.2-1.0)
[2024-03-07 17:18] LABS: SQUAMOUS EPITHELIAL CELLS,UR 0-5 /hpf (0-5); WBC,URINE 0-5 /hpf (0-5)
[2024-03-07 17:19] LABS: AMORPHOUS SEDIMENT,URINE FEW /hpf (NOT SEEN); BACTERIA,URINE MODERATE /hpf (FEW); MUCUS,URINE FEW /hpf (FEW)
[2024-03-07] MEDS: Magnesium Sulfate/Water Premix 2 GM/50 ML BAG IV ONE (17:27)
[2024-03-07] MEDS: Sodium Chloride 0.9% 1,000 ML IV SCH (17:28)
[2024-03-07] MEDS ORDERED: Labetalol 100 MG/20 ML MDV IVPUSH PRN (18:27)
[2024-03-07 19:15] LABS: TSH 0.802 uIU/mL (0.358-3.74)
[2024-03-07 19:15] LABS: SODIUM,URINE RANDOM 114 mEq/L (40-220)
[2024-03-07 19:33] LABS: CREATININE,URINE RAND < 13.0 mg/dL (30.0-125.0)
[2024-03-07] MEDS: Ondansetron 4 MG/2 ML SDV IV PRN (19:37)
[2024-03-07] MEDS: hydrALAZINE 20 MG/ML SDV IVPUSH PRN (19:37)
[2024-03-07] MEDS: Iopamidol 612 MG/ML 100 ML Bottle IVPUSH ONE (19:55)
[2024-03-07 20:30] LABS: OSMOLALITY,URINE 401 mosm/kg (400-1100)
[2024-03-07] MEDS: oxyCODONE 5 MG Tab PO PRN (21:36)
[2024-03-07] MEDS: Melatonin 3 MG Tab PO PRN (21:36)
[2024-03-07] MEDS: LORazepam 2 MG/ML SDV IVPUSH ONE (23:12)
[2024-03-08 05:32] LABS: BASOPHILS PERCENT AUTO 0.1 % (0.0-1.0); EOSINOPHILS ABSOLUTE AUTO 0.1 K/mm3 (0.0-0.4); EOSINOPHILS PERCENT AUTO 1.3 % (0.0-6.0); HEMATOCRIT 34.8 % (37.0-47.0); HEMOGLOBIN 11.7 gm/dl (12.0-16.0); IMMATURE GRAN ABSOLUTE AUTO 0.02 K/mm3 (0.00-0.05); IMMATURE GRAN PERCENT AUTO 0.3 % (0.0-0.4); LYMPHOCYTES ABSOLUTE AUTO 1.1 K/mm3 (1.0-4.8); MEAN CORPUSCULAR HEMOGLOBIN 28.3 pg (28.0-32.0); MEAN CORPUSCULAR HGB CONC 33.6 g/dl (32.0-36.0); MEAN CORPUSCULAR VOLUME 84.3 fl (83.0-99.0); MEAN PLATELET VOLUME 11.6 fl (9.4-12.3); MONOCYTES ABSOLUTE AUTO 0.6 K/mm3 (0.0-0.8); MONOCYTES PERCENT AUTO 7.8 % (0.0-8.0); NEUTROPHILS PERCENT AUTO 76.5 % (41.0-71.0); PLATELET COUNT,PLT 209 K/mm3 (150-400); RED BLOOD CELL COUNT 4.13 M/mm3 (4.10-5.30); WHITE BLOOD CELL COUNT,WBC 7.79 K/mm3 (3.9-11.3)
[2024-03-08 05:58] LABS: A/G RATIO 1.7 (1-2); ANION GAP 15.4 (5-15); BILIRUBIN TOTAL 0.7 mg/dL (0.2-1.0); BUN/CREATININE RATIO 23.8 (14-18); CALCIUM 8.7 mg/dL (8.5-10.1); CREATININE 0.8 mg/dL (0.55-1.02); EST CRCL DRUG DOSING (CG) 40.66 mL/min; MAGNESIUM 1.9 mg/dL (1.8-2.4); POTASSIUM,K 3.4 mEq/L (3.5-5.1); PROTEIN TOTAL,TP 6.4 g/dl (6.4-8.2)
[2024-03-08] MEDS: Enoxaparin 40 MG/0.4 ML Syringe SUBCUT SCH (08:14)
[2024-03-08] MEDS: Potassium Chloride 20 MEQ Tab.ER PO ONE (08:48)
[2024-03-08] MEDS: Benzonatate 100 MG Cap PO PRN (11:13)
[2024-03-08] MEDS ORDERED: Cetirizine 10 MG Tab PO PRN (13:11)
[2024-03-08] MEDS ORDERED: SUMAtriptan 50 MG Tab PO PRN (13:11)
[2024-03-08] MEDS ORDERED: Calcium Carbonate 500 MG Tab.Chew PO PRN (13:11)
[2024-03-08] MEDS ORDERED: Hydrocortisone 1% Crm 30 GM Tube TOP PRN (13:11)
[2024-03-08] MEDS ORDERED: Aloe Vera/Sodium Chloride Gel 14.1 GM Tube NASBOTH PRN (13:11)
[2024-03-08] MEDS: Acetaminophen 325 MG Tab PO PRN (14:37)
[2024-03-08] MEDS: Doxazosin 4 MG Tab PO SCH (19:52)
[2024-03-08] MEDS: traZODone 50 MG Tab PO SCH (19:52)
[2024-03-08] MEDS ORDERED: Carvedilol 12.5 MG Tab PO SCH (21:00)
[2024-03-09] MEDS ORDERED: Naloxone 0.4 MG/ML SDV IVPUSH PRN (02:39)
[2024-03-09] MEDS: HYDROmorphone 0.5 MG/0.5 ML Syringe IVPUSH ONE (02:53)
[2024-03-09] MEDS: Diclofenac Sodium 1% Gel 100 GM Tube TOP SCH (02:54)
[2024-03-09 05:23] LABS: ANION GAP 18.3 (5-15); BUN/CREATININE RATIO 25.5 (14-18); CALCIUM 9.2 mg/dL (8.5-10.1); CREATININE 1.1 mg/dL (0.55-1.02); EST CRCL DRUG DOSING (CG) 29.57 mL/min; POTASSIUM,K 4.3 mEq/L (3.5-5.1)
[2024-03-09] MEDS: Pantoprazole 40 MG Tab.CR PO SCH (06:26)
[2024-03-09] MEDS: LORazepam 2 MG/ML SDV IVPUSH PRN (08:09)
[2024-03-09] MEDS: Aspirin 81 MG Tab.Chew PO SCH (08:13)
[2024-03-09] MEDS: Losartan 100 MG Tab PO SCH (08:13)
[2024-03-09] MEDS: Cholecalciferol (Vitamin D3) 25 MCG Tab PO SCH (08:13)
[2024-03-09] MEDS ORDERED: Sodium Chloride 0.9% 1,000 ML IV SCH (10:00)
[2024-03-09] MEDS: Sennosides/Docusate Sodium 50-8.6 MG Tab PO PRN (10:20)
[2024-03-09] MEDS: QUEtiapine 25 MG Tab PO ONE (10:20)
[2024-03-09] MEDS: Sodium Chloride 0.9% 1,000 ML IV SCH (10:21)
[2024-03-09] MEDS: Pregabalin 75 MG Cap PO SCH ×2 (14:01→14:45)
[2024-03-09] MEDS: QUEtiapine 25 MG Tab PO SCH (20:40)
[2024-03-10 06:39] LABS: ANION GAP 12.8 (5-15); CALCIUM 8.6 mg/dL (8.5-10.1); EST CRCL DRUG DOSING (CG) 32.53 mL/min; POTASSIUM,K 3.8 mEq/L (3.5-5.1)
[2024-03-10] MEDS: Potassium Chloride 20 MEQ Tab.ER PO ONE (10:50)
[2024-03-10 13:23] VITALS: BP 130/57; PULSE 92
== END 2024-03-10 12:18 | disposition home or self-care (01) | DRG 641 ==
LOC: JD.ED 12:58 → JD.MS 18:23
PROVIDERS: ADMIT Student in an Organized Health Care Education/Training Program; ATTEND Student in an Organized Health Care Education/Training Program
DX: A08.4 Viral intestinal infection, unspecified (principal); E87.1 Hypo-osmolality and hyponatremia; I13.0 Hypertensive heart and chronic kidney disease with heart failure and stage 1 through stage 4 chronic kidney disease, or unspecified chronic kidney disease; I10 Essential (primary) hypertension; J98.11 Atelectasis; N18.4 Chronic kidney disease, stage 4 (severe); F03.92 Unspecified dementia, unspecified severity, with psychotic disturbance; Z79.891 Long term (current) use of opiate analgesic; I50.9 Heart failure, unspecified; G43.909 Migraine, unspecified, not intractable, without status migrainosus; E66.9 Obesity, unspecified; H54.7 Unspecified visual loss; F15.90 Other stimulant use, unspecified, uncomplicated; I16.0 Hypertensive urgency; E83.42 Hypomagnesemia; K52.9 Noninfective gastroenteritis and colitis, unspecified; G47.00 Insomnia, unspecified; E87.6 Hypokalemia; I44.0 Atrioventricular block, first degree; N28.1 Cyst of kidney, acquired; Z66 Do not resuscitate; Z88.1 Allergy status to other antibiotic agents; Z79.1 Long term (current) use of non-steroidal anti-inflammatories (NSAID); Z79.02 Long term (current) use of antithrombotics/antiplatelets; Z90.710 Acquired absence of both cervix and uterus; Z79.899 Other long term (current) drug therapy; Z90.49 Acquired absence of other specified parts of digestive tract; Z68.30 Body mass index [BMI] 30.0-30.9, adult; Z87.440 Personal history of urinary (tract) infections
CPT/HCPCS: 36415; 71045; 74177; 80053; 81001; 82570; 83605; 83690; 83735; 83930; 83935; 84300; 84443; 84484; 84540; 85025; 85610; 85730; 87040 ×2; 87428; 93005; J2405 ×2; J2765; J3475; J7030 ×2; 51798; 70450; 70450-26; 80048; 84100; 93010; 94761; 97110-GP; 97116-GP; 97161-GP; 97530-GP; 99284; A9270-GY; J0360; J1650; J2060

== ENCOUNTER 2024-08-25 12:52 | Emergency (ER) | payer MEDICARE, BC ==
[2024-08-25 13:46] LABS: BASOPHILS PERCENT AUTO 0.6 % (0.0-1.0); EOSINOPHILS ABSOLUTE AUTO 0.3 K/mm3 (0.0-0.4); EOSINOPHILS PERCENT AUTO 4.5 % (0.0-6.0); HEMATOCRIT 33.1 % (37.0-47.0); HEMOGLOBIN 10.6 gm/dl (12.0-16.0); IMMATURE GRAN ABSOLUTE AUTO 0.03 K/mm3 (0.00-0.05); IMMATURE GRAN PERCENT AUTO 0.5 % (0.0-0.4); LYMPHOCYTES ABSOLUTE AUTO 1.2 K/mm3 (1.0-4.8); LYMPHOCYTES PERCENT AUTO 18.2 % (24.0-44.0); MEAN CORPUSCULAR HEMOGLOBIN 29.3 pg (28.0-32.0); MEAN PLATELET VOLUME 11.6 fl (9.4-12.3); MONOCYTES ABSOLUTE AUTO 0.5 K/mm3 (0.0-0.8); MONOCYTES PERCENT AUTO 7.4 % (0.0-8.0); NEUTROPHILS ABSOLUTE AUTO 4.5 K/mm3 (1.8-7.7); NEUTROPHILS PERCENT AUTO 68.8 % (41.0-71.0); PLATELET COUNT,PLT 150 K/mm3 (150-400); RED BLOOD CELL COUNT 3.62 M/mm3 (4.10-5.30); WHITE BLOOD CELL COUNT,WBC 6.48 K/mm3 (3.9-11.3)
[2024-08-25 13:51] LABS: MEAN CORPUSCULAR VOLUME 91.4 fl (83.0-99.0)
[2024-08-25 14:45] LABS: A/G RATIO 1.5 (1-2); ALANINE AMINOTRANSFERASE,ALT 26 U/L (14-59); ALBUMIN 3.9 g/dl (3.4-5.0); ALKALINE PHOSPHATASE 62 U/L (46-116); ANION GAP 14.6 (5-15); ASPARTATE AMNIOTRANSFERASE,AST 16 U/L (15-37); BILIRUBIN TOTAL 0.5 mg/dL (0.2-1.0); BLOOD UREA NITROGEN,BUN 46 mg/dL (7-18); BUN/CREATININE RATIO 27.1 (14-18); CARBON DIOXIDE,CO2 24 mEq/L (21-32); CHLORIDE,CL 101 mEq/L (98-107); CREATINE KINASE,CK 125 U/L (26-192); CREATININE 1.7 mg/dL (0.55-1.02); ESTIMATED GFR 29 mL/min (>60); GLUCOSE RANDOM 98 mg/dL (70-99); LIPASE 71 U/L (16-77); MAGNESIUM 2.1 mg/dL (1.8-2.4); POTASSIUM,K 5.6 mEq/L (3.5-5.1); PROTEIN TOTAL,TP 6.5 g/dl (6.4-8.2); SODIUM,NA 134 mEq/L (136-145)
[2024-08-25 14:54] LABS: TROPONIN I HIGH SENSITIVITY 55 pg/mL (<=51)
[2024-08-25] MEDS: Sodium Chloride 0.9% 500 ML IV SCH (16:40)
[2024-08-25 18:23] LABS: APPEARANCE,URINE CLEAR (Clear); BILIRUBIN,URINE NEGATIVE (Negative); COLOR,URINE YELLOW (Yellow); GLUCOSE,URINE NEGATIVE (Negative); KETONES,URINE NEGATIVE (Negative); LEUKOCYTE ESTERASE,URINE NEGATIVE (Negative); NITRITE,URINE NEGATIVE (Negative); OCCULT BLOOD,URINE NEGATIVE (Negative); PROTEIN,URINE NEGATIVE (Negative); UROBILINOGEN,URINE 0.2 (0.2-1.0)
[2024-08-25] MEDS: Acetaminophen 325 MG Tab PO ONE (18:54)
[2024-08-25 20:06] VITALS: BP 156/77; PULSE 72
== END 2024-08-25 19:30 | disposition home or self-care (01) ==
LOC: JD.ED 12:52
DX: R55 Syncope and collapse (principal); E86.9 Volume depletion, unspecified; R53.83 Other fatigue; N28.9 Disorder of kidney and ureter, unspecified; I10 Essential (primary) hypertension; E66.9 Obesity, unspecified; Z88.8 Allergy status to other drugs, medicaments and biological substances; Z79.899 Other long term (current) drug therapy; Z79.82 Long term (current) use of aspirin; Z90.710 Acquired absence of both cervix and uterus
CPT/HCPCS: 36415; 70450; 71045; 80053; 81003; 82550; 82947; 83690; 83735; 83880; 84484; 85025; 93005; 96360; 99285; A9270; J7030; 93010; 99283

== ENCOUNTER 2024-09-25 13:51 | Inpatient (IN) | payer MEDICARE, BC ==
[2024-09-25 14:34] LABS: BASE EXCESS ARTERIAL -4.2 (-2-2.0); BICARBONATE,ARTERIAL 19.8 meq/L (22.0-26.0); O2 SATURATION ARTERIAL 96.2 % (96.0-97.0); PCO2 ARTERIAL 32.0 mmHg (35.0-45.0); PO2 ARTERIAL 66.0 mmHg (80.0-100.0)
[2024-09-25 15:06] LABS: BASOPHILS ABSOLUTE AUTO 0.1 K/mm3 (0.0-0.2); BASOPHILS PERCENT AUTO 1.2 % (0.0-1.0); EOSINOPHILS ABSOLUTE AUTO 0.8 K/mm3 (0.0-0.4); EOSINOPHILS PERCENT AUTO 12.7 % (0.0-6.0); IMMATURE GRAN ABSOLUTE AUTO 0.01 K/mm3 (0.00-0.05); IMMATURE GRAN PERCENT AUTO 0.2 % (0.0-0.4); LYMPHOCYTES ABSOLUTE AUTO 1.4 K/mm3 (1.0-4.8); LYMPHOCYTES PERCENT AUTO 23.8 % (24.0-44.0); MEAN PLATELET VOLUME 12.9 fl (9.4-12.3); MONOCYTES ABSOLUTE AUTO 0.5 K/mm3 (0.0-0.8); MONOCYTES PERCENT AUTO 8.2 % (0.0-8.0); NEUTROPHILS ABSOLUTE AUTO 3.2 K/mm3 (1.8-7.7); NEUTROPHILS PERCENT AUTO 53.9 % (41.0-71.0); NRBC ABSOLUTE 0.00 (0.00-0.02); NRBC PERCENT 0.0 % (0.0-0.2); PLATELET COUNT,PLT 115 K/mm3 (150-400); RED BLOOD CELL COUNT 3.85 M/mm3 (4.10-5.30); WHITE BLOOD CELL COUNT,WBC 5.97 K/mm3 (3.9-11.3)
[2024-09-25 15:39] LABS: A/G RATIO 1.5 (1-2); ALANINE AMINOTRANSFERASE,ALT 26 U/L (14-59); ASPARTATE AMNIOTRANSFERASE,AST 22 U/L (15-37); BILIRUBIN TOTAL 0.4 mg/dL (0.2-1.0); BLOOD UREA NITROGEN,BUN 58 mg/dL (7-18); CREATINE KINASE,CK 237 U/L (26-192); GLUCOSE RANDOM 79 mg/dL (70-99); PROTEIN TOTAL,TP 7.7 g/dl (6.4-8.2); TROPONIN I HIGH SENSITIVITY 11 pg/mL (<=51)
[2024-09-25 15:54] LABS: CARBON DIOXIDE,CO2 21 mEq/L (21-32); CHLORIDE,CL 101 mEq/L (98-107); SODIUM,NA 132 mEq/L (136-145)
[2024-09-25 15:59] LABS: POTASSIUM,K 8.3 mEq/L (3.5-5.1)
[2024-09-25 16:00] LABS: CREATININE 4.2 mg/dL (0.55-1.02); ESTIMATED GFR 10 mL/min (>60)
[2024-09-25] MEDS: Albuterol 0.083% 2.5 MG/3 ML Neb Soln NEB ONE ×2 (16:07→16:17)
[2024-09-25 16:21] LABS: APPEARANCE,URINE CLEAR (Clear); GLUCOSE,URINE NEGATIVE (Negative); OCCULT BLOOD,URINE NEGATIVE (Negative)
[2024-09-25 16:37] LABS: BLOOD UREA NITROGEN,BUN 58 mg/dL (7-18); CARBON DIOXIDE,CO2 21 mEq/L (21-32); CHLORIDE,CL 102 mEq/L (98-107); CREATININE 4.2 mg/dL (0.55-1.02); ESTIMATED GFR 10 mL/min (>60); GLUCOSE RANDOM 77 mg/dL (70-99); SODIUM,NA 132 mEq/L (136-145)
[2024-09-25 16:39] LABS: POTASSIUM,K 8.1 mEq/L (3.5-5.1)
[2024-09-25] MEDS: Calcium Gluconate 10% 1 GM/10 ML SDV IVPUSH ONE ×3 (16:49→22:49)
[2024-09-25] MEDS: Insulin Regular, Human 100 Units/ML 10 ML Vial IV ONE ×3 (16:52→22:49)
[2024-09-25] MEDS: 50% Dextrose in Water 50 ML Syringe IVPUSH STA (16:56)
[2024-09-25] MEDS: Furosemide 40 MG/4 ML VIAL IVPUSH ONE (17:00)
[2024-09-25] MEDS: Insulin Regular, Human 100 Units/ML 3 ML Vial IV ONE (17:09)
[2024-09-25] MEDS: 50% Dextrose in Water 50 ML Syringe IVPUSH ONE ×2 (19:11→22:49)
[2024-09-25] MEDS: 50% Dextrose in Water 50 ML Syringe IVPUSH PRN (21:22)
[2024-09-26] MEDS ORDERED: 50% Dextrose in Water 50 ML Syringe IVPUSH ONE (01:37)
[2024-09-26] MEDS: Calcium Gluconate 10% 1 GM/10 ML SDV IVPUSH ONE ×3 (01:52→10:09)
[2024-09-26] MEDS: Insulin Regular, Human 100 Units/ML 3 ML Vial IV ONE (01:56)
[2024-09-26] MEDS: Insulin Regular, Human 100 Units/ML 10 ML Vial IV ONE ×3 (02:01→10:14)
[2024-09-26] MEDS: 50% Dextrose in Water 50 ML Syringe IVPUSH ONE ×3 (02:04→10:14)
[2024-09-26 05:29] LABS: BASOPHILS ABSOLUTE AUTO 0.0 K/mm3 (0.0-0.2); BASOPHILS PERCENT AUTO 0.6 % (0.0-1.0); EOSINOPHILS ABSOLUTE AUTO 0.5 K/mm3 (0.0-0.4); EOSINOPHILS PERCENT AUTO 7.8 % (0.0-6.0); IMMATURE GRAN ABSOLUTE AUTO 0.03 K/mm3 (0.00-0.05); IMMATURE GRAN PERCENT AUTO 0.5 % (0.0-0.4); LYMPHOCYTES ABSOLUTE AUTO 0.8 K/mm3 (1.0-4.8); LYMPHOCYTES PERCENT AUTO 12.8 % (24.0-44.0); MEAN PLATELET VOLUME 12.8 fl (9.4-12.3); MONOCYTES ABSOLUTE AUTO 0.6 K/mm3 (0.0-0.8); MONOCYTES PERCENT AUTO 9.6 % (0.0-8.0); NEUTROPHILS ABSOLUTE AUTO 4.3 K/mm3 (1.8-7.7); NEUTROPHILS PERCENT AUTO 68.7 % (41.0-71.0); NRBC ABSOLUTE 0.00 (0.00-0.02); NRBC PERCENT 0.0 % (0.0-0.2); PLATELET COUNT,PLT 132 K/mm3 (150-400); RED BLOOD CELL COUNT 3.43 M/mm3 (4.10-5.30); WHITE BLOOD CELL COUNT,WBC 6.26 K/mm3 (3.9-11.3)
[2024-09-26 05:56] LABS: A/G RATIO 1.4 (1-2); ALANINE AMINOTRANSFERASE,ALT 20 U/L (14-59); ASPARTATE AMNIOTRANSFERASE,AST 16 U/L (15-37); BILIRUBIN TOTAL 0.3 mg/dL (0.2-1.0); BLOOD UREA NITROGEN,BUN 52 mg/dL (7-18); CARBON DIOXIDE,CO2 21 mEq/L (21-32); CHLORIDE,CL 102 mEq/L (98-107); CREATININE 3.7 mg/dL (0.55-1.02); ESTIMATED GFR 11 mL/min (>60); GLUCOSE RANDOM 87 mg/dL (70-99); PROTEIN TOTAL,TP 6.1 g/dl (6.4-8.2); SODIUM,NA 133 mEq/L (136-145)
[2024-09-26 05:59] LABS: POTASSIUM,K 6.7 mEq/L (3.5-5.1)
[2024-09-26] MEDS: Albuterol 0.083% 2.5 MG/3 ML Neb Soln NEB ONE (08:07)
[2024-09-26] MEDS: Furosemide 40 MG/4 ML VIAL IVPUSH ONE (10:33)
[2024-09-26] MEDS: LORazepam 2 MG/ML SDV IVPUSH PRN (19:50)
[2024-09-27] MEDS ORDERED: LORazepam 2 MG/ML SDV IVPUSH PRN (09:08)
[2024-09-27] MEDS: LORazepam 2 MG/ML SDV IVPUSH PRN (11:46)
[2024-09-27] MEDS ORDERED: Sennosides/Docusate Sodium 50-8.6 MG Tab PO PRN (12:24)
[2024-09-27 18:29] LABS: BLOOD UREA NITROGEN,BUN 47 mg/dL (7-18); CARBON DIOXIDE,CO2 23 mEq/L (21-32); CHLORIDE,CL 104 mEq/L (98-107); CREATININE 2.6 mg/dL (0.55-1.02); ESTIMATED GFR 17 mL/min (>60); GLUCOSE RANDOM 98 mg/dL (70-99); POTASSIUM,K 5.5 mEq/L (3.5-5.1); SODIUM,NA 138 mEq/L (136-145)
[2024-09-28 11:58] VITALS: BP 121/59
[2024-09-28] MEDS: fentaNYL 25 MCG/HR Transdermal Patch TRDERM SCH (12:24)
[2024-09-28 12:35] VITALS: PULSE 95
== END 2024-09-28 13:55 | DRG 641 ==
LOC: JD.ED 13:51 → JD.ICU 18:17
PROVIDERS: ADMIT Family Medicine; ATTEND Student in an Organized Health Care Education/Training Program
PROC: 4A133R1 Monitoring of Arterial Saturation, Peripheral, Percutaneous Approach (ICD-10-PCS; principal; 2024-09-25)
PROC: 0T9B70Z Drainage of Bladder with Drainage Device, Via Natural or Artificial Opening (ICD-10-PCS; principal; 2024-09-25)
DX: E87.5 Hyperkalemia (principal); N17.9 Acute kidney failure, unspecified; R40.0 Somnolence; G43.909 Migraine, unspecified, not intractable, without status migrainosus; Z66 Do not resuscitate; Z88.8 Allergy status to other drugs, medicaments and biological substances; Z51.5 Encounter for palliative care; H54.7 Unspecified visual loss; I10 Essential (primary) hypertension; E66.9 Obesity, unspecified; I48.91 Unspecified atrial fibrillation; K21.9 Gastro-esophageal reflux disease without esophagitis; I12.9 Hypertensive chronic kidney disease with stage 1 through stage 4 chronic kidney disease, or unspecified chronic kidney disease; F03.90 Unspecified dementia, unspecified severity, without behavioral disturbance, psychotic disturbance, mood disturbance, and anxiety; N18.9 Chronic kidney disease, unspecified; Z79.899 Other long term (current) drug therapy; Z88.1 Allergy status to other antibiotic agents; Z79.82 Long term (current) use of aspirin; Z90.49 Acquired absence of other specified parts of digestive tract; Z90.710 Acquired absence of both cervix and uterus; Z98.890 Other specified postprocedural states
CPT/HCPCS: 36415; 36600; 51702; 71045; 71045-26; 80048; 80053; 81003; 82550; 82803; 82947; 83605; 83690; 83735; 83880; 84132; 84484; 85025; 87040; 87426-QW; 93005; 93010; 94640; 96374; 96375; 99285; 99285-25; A9270-GY; C1758; J0612; J1815-GY; J1938; J2060; J2270; J3490; J7030; U0002